=== PATIENT | male | born 1960 | race Caucasian/White ===

== ENCOUNTER 2017-02-02 09:38 | Outpatient (CLI) ==
--- NOTE | 2017-02-02 10:23 | CT ---
EXAM: CT chest without contrast HISTORY: Lung scarring with emphysema and shortness of breath COMPARISON: CT chest 01/14/2016 and 02/25/2013 TECHNIQUE: Serial axial images of the chest were obtained from the lung apices to the upper abdomen without contrast. These were viewed in multiple planes. FINDINGS: The thyroid is normal. The visualized vessels are unremarkable without aneurysm or stenos is. The heart is normal in size without pericardial effusion. There are no pathologically enlarged mediastinal or hilar lymph nodes. There are no pathologically enlarged lymph nodes. There are bilate ral hilar calcified lymph nodes. There is no pneumothorax or pleural effusion. There is biapical pleural thickening. There is mild r ight upper lobe bronchiectasis. Mild respiratory motion is noted in the lung bases. There is no acut e consolidation, nodule or mass. The airways are patent. Soft tissues in the upper abdomen are unremarkable. There is no acute compression fracture or osseou s abnormality. IMPRESSION: 1. Mild biapical pleural thickening consistent with fibrosis with scattered bronchiectasis consisten t with chronic disease. There is no discrete signs of emphysema. 2. Sequela of old granulomatous disease.
== END 2017-02-02 09:39 | disposition home or self-care (01) ==
LOC: RAD 09:38
PROVIDERS: ATTEND Internal Medicine Pulmonary Disease
DX: J98.4 Other disorders of lung (principal)

== ENCOUNTER 2017-12-21 08:56 | Day surgery (SDC) | payer OTHER ==
[2017-12-21] MEDS ORDERED: LIDOCAINE 1% 20 ML MDV ID STA (09:29)
[2017-12-21 09:33] VITALS: TEMP 98.4
[2017-12-21] MEDS ORDERED: SUBLIMAZE ONE (09:52)
[2017-12-21] MEDS ORDERED: DIPRIVAN 20 ML VIAL IVP ONE (09:52)
[2017-12-21] MEDS ORDERED: VERSED ONE (09:52)
[2017-12-21 11:43] VITALS: BP 133/78
--- NOTE | 2017-12-22 10:03 | OP ---
PROCEDURE: COLONOSCOPY TO THE CECUM. ENDOSCOPIST: Fuentes DIETRICH M.D. INDICATION: HISTORY OF POLYPS. INSTRUMENT: [id number]. MEDICATION: PER ANESTHESIA. PROCEDURE: The patient was positioned for colonoscopy. The digital rectal exam was negative. The colonoscope was inserted through the anus and advanced to the cecum. The cecum was identified using the ileocecal valve and the appendiceal orifice as landmarks. The scope was slowly withdrawn through an adequately prepped colon. No evidence for polyp or mass. Rectal scar noted. Retroflex exam was otherwise negative. The patient tolerated the procedure without immediate complication. PLAN: 1. Repeat in five years. CC: DR. RODRIGUE SPANN
== END 2017-12-21 11:10 | disposition home or self-care (01) ==
LOC: SURG 08:56
PROVIDERS: ATTEND Internal Medicine Gastroenterology
DX: Z86.010 Personal history of colon polyps (principal)

== ENCOUNTER 2018-05-09 22:11 | Emergency (ER) ==
[2018-05-09 22:22] VITALS: BP 150/77; TEMP 98.6; BMI 22.1
--- NOTE | 2018-05-09 22:54 | DI ---
EXAM: Right wrist three views HISTORY: Fall COMPARISON: None. FINDINGS: There is no acute fracture or dislocation.. The surrounding soft tissues are unremarkable . IMPRESSION: No acute findings
--- NOTE | 2018-05-09 22:57 | DI ---
EXAM: Right hand three views HISTORY: Fall COMPARISON: None. FINDINGS: There is no acute fracture or dislocation. The surrounding soft tissues are unremarkable. IMPRESSION: No acute findings
--- NOTE | 2018-05-09 22:58 | DI ---
EXAM: Right knee four views HISTORY: Trauma COMPARISON: None. FINDINGS: There is no evidence of fracture or joint effusion. Joint spaces are maintained. The rose rounding soft tissues are unremarkable IMPRESSION: No acute findings.
--- NOTE | 2018-05-09 23:03 | ED.PDOC ---
General ED Provider: Dr. RAN MAYBERRY-ER Chief Complaint: Multiple Trauma Stated Complaint: i fell on sidewalk Time Seen by Physician: 23:01 Mode of Arrival: Walk-In Information Source: Patient Exam Limitations: No limitations Primary Care Provider: HUSSEIN HUSAIN Nursing and Triage Documentation Reviewed and Agree: Yes Does patient meet sepsis criteria?: No System Inflammatory Response Syndrome: Not Applicable Sepsis Protocol: For patient's 13 years and over: Temp is 96.8 and below OR 101 and greater Pulse >90 BPM Resp >20/minute Acutely Altered Mental Status Are patient's symptoms suggestive of a new infection, such as: -Pneumonia -Skin, Soft Tissue -Endocarditis -UTI -Bone, Joint Infection -Implantable Device -Acute Abdominal Infection -Wound Infection -Meningitis -Blood Stream Catheter Infection -Unknown Musculoskeletal Complaint Exam - Hand/Wrist Complaint/Exam Location of Pain: Reports: Right, Hand, Wrist Mechanism of Injury: Reports: Trauma Onset/Duration: one hour Symptoms Are: Still present Onset of Pain: Reports: Immediate Initial Severity: Mild Current Severity: Mild Location: Reports: Discrete Character: Reports: Dull, Aching Aggravating: Reports: Movement Associated Signs and Symptoms: Denies: Swelling, Redness, Bruising, Fever, Weakness, Numbness, Tingling Hand/Wrist Findings: Present: Ecchymosis Tenderness: Present: Radius, Ulna, Phalanx Compartment Syndrome Risk Factors: Present: Pain Differential Diagnoses: Abrasion, Closed Fracture Review of Systems - Review Of Systems Constitutional: Reports: No symptoms Eyes: Reports: No symptoms Ears, Nose, Mouth, Throat: Reports: No symptoms Respiratory: Reports: No symptoms Cardiac: Reports: No symptoms GI: Reports: No symptoms : Reports: No symptoms Musculoskeletal: Reports: Joint pain, Joint swelling, Muscle pain Skin: Reports: No symptoms Neurological: Reports: No symptoms Endocrine: Reports: No symptoms Hematologic/Lymphatic: Reports: No symptoms All Other Systems: Reviewed and Negative Past Medical History - Past Medical History Previously Healthy: Yes Endocrine: Reports: Unknown Cardiovascular: Reports: Unknown Respiratory: Reports: Unknown Hematological: Reports: Unknown Gastrointestinal: Reports: Unknown Genitourinary: Reports: Unknown Neuro/Psych: Reports: Unknown Musculoskeletal: Reports: Unknown Cancer: Reports: Unknown - Surgical History General Surgical History: Reports: Unknown - Family History Family History: Reports: Unknown - Social History Smoking Status: Current every day smoker, Heavy tobacco smoker Hx Substance Use: No Alcohol Screening: None - Immunizations Tetanus Shot up to Date: (UNKNOWN) Physical Exam - Physical Exam Appearance: Well-appearing, No pain distress, Well-nourished Eyes: ALON, EOMI, Conjunctiva clear ENT: Ears normal, Nose normal, Oropharynx normal Neck: Supple Respiratory: Airway patent, Breath sounds clear, Breath sounds equal, Respirations nonlabored Cardiovascular: RRR, Pulses normal, No rub, No murmur GI/: Soft, Nontender, No masses, Bowel sounds normal, No Organomegaly Musculoskeletal: Limited ROM (noted abrasions right hand and contusion right knee) Skin: Warm, Dry, Normal color Neurological: Sensation intact, Motor intact, Reflexes intact, Cranial nerves intact, Alert, Oriented Psychiatric: Affect appropriate, Mood appropriate Critical Care Note - Critical Care Note Total Time (mins): 0 Course - Course Orders, Labs, Meds: Orders Category Date Time Status HAND, RIGHT 3 VIEWS Stat RADS 05/09/18 22:27 Completed KNEE, RIGHT 4 VIEWS Stat RADS 05/09/18 22:27 Completed WRIST, RIGHT 3 VIEWS Stat RADS 05/09/18 22:27 Completed Vital Signs: Temp Pulse Resp BP Pulse Ox 05/09/18 22:12 98.6 F 78 18 150/77 H 96 Departure - Departure Time of Disposition: 23:03 Disposition: HOME SELF-CARE Discharge Problem: Abrasion, hand Qualifiers: Encounter type: initial encounter Laterality: right Qualified Code(s): S60.511A - Abrasion of right hand, initial encounter Contusion, knee Qualifiers: Encounter type: initial encounter Laterality: right Qualified Code(s): S80.01XA - Contusion of right knee, initial encounter Instructions: Contusion in Adults (ED) Condition: Good Pt referred to PMD for follow-up: Yes IPMP verified?: No Additional Instructions: ice---tylenol or motrin for pain---f/u with pcp Allergies/Adverse Reactions: Allergies No Known Allergies Allergy (Verified 05/09/18 22:22) Home Medications: Ambulatory Orders Docusate Sodium [Colace] 100 mg PO BID 11/02/12 Alprazolam [Xanax] 0.25 mg PO BID 11/03/12 Atorvastatin Calcium [Lipitor] 20 mg PO DAILY 11/03/12 Prednisolone Acetate [Pred Forte] 1 drop OP DAILY 11/03/12 Garrison-3S/Dha/Epa/Fish Oil [Fish Oil 1,200 mg Softgel] 1 each PO TID 05/09/18 Disposition Discussed With: Patient, Family
== END 2018-05-09 23:09 | disposition home or self-care (01) ==
LOC: ED 22:11
DX: S60.511A Abrasion of right hand, initial encounter (principal); S80.01XA Contusion of right knee, initial encounter; S69.91XA Unspecified injury of right wrist, hand and finger(s), initial encounter; W19.XXXA Unspecified fall, initial encounter; F17.210 Nicotine dependence, cigarettes, uncomplicated
CPT/HCPCS: 99282